=== PATIENT | male | born 1970 | race Caucasian/White ===

== ENCOUNTER 2021-03-14 14:42 | Emergency (ER) | payer BC ==
[2021-03-14 15:20] VITALS: BP 111/67; PULSE 93; TEMP 100.2; BMI 28.2
[2021-03-14] MEDS ORDERED: KETOROLAC TROMETHAMINE 30 MG/1 ML VIAL IM ONE (16:26)
[2021-03-14] MEDS ORDERED: ONDANSETRON *ODT* 4 MG TABLET SL ONE (16:26)
[2021-03-17 01:06] LABS: SARS-CoV-2 NAA Detected (Not Detected)
== END 2021-03-14 17:47 | disposition home or self-care (01) ==
LOC: JER 14:42
PROC: 3E023GC Introduction of Other Therapeutic Substance into Muscle, Percutaneous Approach (ICD-10-PCS; principal; 2021-03-14)
DX: B34.9 Viral infection, unspecified (principal)
CPT/HCPCS: 87070; 87651; 87804; 99284-25; C9803; Q0162; U0003; U0005

== ENCOUNTER 2021-12-23 04:41 | Day surgery (SDC) | payer BC ==
[2021-12-21 14:35] VITALS: BMI 27.6
[2021-12-23 12:36] VITALS: TEMP 97.3
[2021-12-23 13:07] VITALS: BP 106/62; PULSE 57; RESP 14
== END 2021-12-23 14:46 | disposition home or self-care (01) ==
LOC: JASU-ENDO 04:41
PROVIDERS: ATTEND Internal Medicine Gastroenterology
PROC: 0DB78ZX Excision of Stomach, Pylorus, Via Natural or Artificial Opening Endoscopic, Diagnostic (ICD-10-PCS; 2021-12-23)
PROC: 0DJD8ZZ Inspection of Lower Intestinal Tract, Via Natural or Artificial Opening Endoscopic (ICD-10-PCS; principal; 2021-12-23 10:15)
DX: Z12.11 Encounter for screening for malignant neoplasm of colon (principal); K21.9 Gastro-esophageal reflux disease without esophagitis
CPT/HCPCS: 43239; G0121; 88305-TC; 88342-TC

== ENCOUNTER 2022-07-08 16:16 | Emergency (ER) | payer BC, OTHER ==
[2022-07-08 16:26] VITALS: TEMP 99; BMI 23.3
[2022-07-08] MEDS ORDERED: SODIUM CHLORIDE 0.9% 500 ML INFUS.BAG IV ONE ×2 (16:57→18:35)
[2022-07-08 17:32] LABS: VENOUS BASE EXCESS 2.4 mmol/L (-2-2); VENOUS O2 SATURATION 44.4 % (70-80); VENOUS PCO2 51.7 mmHg (38-52); VENOUS PH 7.366 (7.310-7.410)
[2022-07-08 18:00] LABS: URINE APPEARANCE CLEAR; URINE BILIRUBIN NEGATIVE (NEGATIVE); URINE COLOR YELLOW; URINE GLUCOSE (UA) 3+ (NEGATIVE); URINE KETONE 1+ (NEGATIVE); URINE LEUK ESTERASE NEGATIVE (NEGATIVE); URINE NITRITE NEGATIVE (NEGATIVE); URINE PROTEIN NEGATIVE (NEGATIVE); URINE UROBILINOGEN 0.2 mg/dL (0.2-1.0)
[2022-07-08 18:08] LABS: CHLORIDE 99 mmol/L (98-107); SODIUM 135 mmol/L (136-145)
[2022-07-08 18:10] LABS: CALCIUM 9.4 mg/dL (8.5-10.1)
[2022-07-08 18:11] LABS: ALBUMIN 4.1 g/dl (3.4-5.0); ANION GAP 4 MMOL/L (8-16); BLOOD UREA NITROGEN 15.3 mg/dL (7-18); CO2 33 mmol/L (21-32)
[2022-07-08 18:14] LABS: CREATININE 1.1 mg/dL (0.55-1.3); SGOT/AST 32 U/L (15-37); SGPT/ALT 42 U/L (13-61)
[2022-07-08 18:15] LABS: BILIRUBIN,TOTAL 0.4 mg/dL (0.2-1)
[2022-07-08 18:16] LABS: ALK PHOS 105 U/L (45-117)
[2022-07-08 18:35] LABS: GLUCOSE,RANDOM 434 mg/dL (74-106)
[2022-07-08 18:55] LABS: BASO % 0.3 % (0-2.0); EOS % 0.6 % (0-4.5); HEMATOCRIT 43.7 % (35.4-49); HEMOGLOBIN 15.4 GM/dL (11.7-16.9); LYMPH % 22.7 % (8-40); MCH 32.7 pg (25.7-33.7); MCHC 35.3 g/dl (32.0-35.9); MEAN CELL VOLUME 92.8 fl (80-96); MEAN PLT VOLUME 9.6 fl (7.5-11.1); MONO % 7.3 % (3.8-10.2); NEUT % 69.1 % (42.8-82.8); PLATELET COUNT 173 10^3/uL (134-434); RBC 4.71 M/mm3 (4.00-5.60); RDW 13.3 % (11.9-15.9); WHITE BLOOD COUNT 5.5 K/mm3 (4.0-10.0)
[2022-07-08 19:29] VITALS: BP 115/65; PULSE 78; RESP 16
[2022-07-08] MEDS ORDERED: INSULIN REGULAR HUMAN 100 UNITS/ML *VIAL SQ ONE (19:57)
[2022-07-08] MEDS ORDERED: INSULIN (NOVOLOG) ASPART 100 UNITS/ML 10ML VIAL SQ ONE ×2 (20:07→20:58)
== END 2022-07-08 21:40 | disposition home or self-care (01) ==
LOC: JER 16:16
PROC: 3E013VG Introduction of Insulin into Subcutaneous Tissue, Percutaneous Approach (ICD-10-PCS; principal; 2022-07-08)
PROC: 3E013VG Introduction of Insulin into Subcutaneous Tissue, Percutaneous Approach (ICD-10-PCS; 2022-07-08)
DX: R73.9 Hyperglycemia, unspecified (principal); R35.89 Other polyuria; Z20.822 Contact with and (suspected) exposure to COVID-19
CPT/HCPCS: 0241U-QW; 36415; 71046-TC-FY; 80053; 81003; 82010; 82803; 82962; 85025; 87086; 93005; 93010; 99285-25

== ENCOUNTER 2023-10-29 14:35 | Emergency (ER) | payer BC, OTHER ==
[2023-10-29 14:43] VITALS: BP 119/86; PULSE 98; RESP 18; TEMP 98.8; BMI 26.1
[2023-10-29] MEDS: LACTATED RINGERS SOLUTION 1000 ML INFUS.BAG IV ONE ×2 (16:00→18:09)
[2023-10-29 16:08] LABS: VENOUS BASE EXCESS 2.2 mmol/L (-2-2); VENOUS O2 SATURATION 44.2 % (70-80); VENOUS PCO2 48.5 mmHg (38-52); VENOUS PH 7.383 (7.310-7.410)
[2023-10-29 16:09] LABS: BASO % 0.3 % (0-2.0); EOS % 0.4 % (0-4.5); HEMATOCRIT 44.5 % (35.4-49); HEMOGLOBIN 16.3 GM/dL (11.7-16.9); LYMPH % 22.7 % (8-40); MCH 33.8 pg (25.7-33.7); MCHC 36.7 g/dl (32.0-35.9); MEAN CELL VOLUME 92.1 fl (80-96); MEAN PLT VOLUME 9.4 fl (7.5-11.1); MONO % 6.6 % (3.8-10.2); PLATELET COUNT 167 10^3/uL (134-434); RBC 4.84 M/mm3 (4.00-5.60); RDW 12.8 % (11.9-15.9); WHITE BLOOD COUNT 6.6 K/mm3 (4.0-10.0)
[2023-10-29 16:31] LABS: POTASSIUM 4.4 mmol/L (3.5-5.1)
[2023-10-29 16:33] LABS: ALBUMIN 4.3 g/dl (3.4-5.0); BLOOD UREA NITROGEN 16.9 mg/dL (7-18); CALCIUM 9.4 mg/dL (8.5-10.1); MAGNESIUM 1.5 mg/dL (1.8-2.4)
[2023-10-29 16:37] LABS: CREATININE 1.1 mg/dL (0.55-1.3)
[2023-10-29 16:38] LABS: PH,URINE 5.5 (5.0-8.0); URINE APPEARANCE CLEAR; URINE BILIRUBIN NEGATIVE (NEGATIVE); URINE COLOR YELLOW; URINE GLUCOSE (UA) 3+ (NEGATIVE); URINE KETONE 2+ (NEGATIVE); URINE LEUK ESTERASE NEGATIVE (NEGATIVE); URINE NITRITE NEGATIVE (NEGATIVE); URINE PROTEIN NEGATIVE (NEGATIVE); URINE UROBILINOGEN 0.2 mg/dL (0.2-1.0)
[2023-10-29 16:38] LABS: BILIRUBIN,TOTAL 0.5 mg/dL (0.2-1); TOT PROT 7.4 g/dl (6.4-8.2)
[2023-10-29] MEDS ORDERED: MAGNESIUM SULFATE IN WATER 2 GM/50 ML IVPB IVPB ONE (18:02)
[2023-10-29] MEDS: MAGNESIUM SULFATE IN WATER 2 GM/50 ML IVPB IVPB ONE (18:09)
== END 2023-10-29 19:21 | disposition home or self-care (01) ==
LOC: JER 14:35
PROC: 3E033GC Introduction of Other Therapeutic Substance into Peripheral Vein, Percutaneous Approach (ICD-10-PCS; principal; 2023-10-29)
DX: E11.65 Type 2 diabetes mellitus with hyperglycemia (principal); R53.1 Weakness; R35.89 Other polyuria; R68.2 Dry mouth, unspecified; R63.1 Polydipsia; Z79.84 Long term (current) use of oral hypoglycemic drugs
CPT/HCPCS: 36415; 80053; 81003; 82803; 82962; 83605; 83735; 85025; 87086; 93005; 93010; 99284-25